=== PATIENT | female | born 1995 | race Caucasian/White ===

== ENCOUNTER 2016-08-20 10:39 | Emergency (ER) | payer SELFPAY ==
[~2016-08-20] VITALS: Ht 172.7 cm; Wt 108.8 kg
== END 2016-08-20 12:11 | disposition short-term general hospital (02) ==
LOC: ER 10:39
DX: F41.0 Panic disorder [episodic paroxysmal anxiety] (principal); E87.6 Hypokalemia; Z98.890 Other specified postprocedural states; Z88.0 Allergy status to penicillin
CPT/HCPCS: G0477; J2060